=== PATIENT | male | born 1995 | race African-American/Black ===

== ENCOUNTER 2016-10-17 03:41 | Emergency (ER) | payer OTHER ==
[2016-10-17 03:58] VITALS: BP 141/85; PULSE 100; TEMP 98.1; BMI 29.3
[2016-10-17] MEDS ORDERED: ACYCLOVIR 400 MG TABLET PO ONE (05:27)
[2016-10-17] MEDS ORDERED: AZITHROMYCIN 250 MG TABLET (FP) PO ONE (05:28)
[2016-10-17] MEDS ORDERED: cefTRIAXone SODIUM 1 GM VIAL ONE (05:47)
[2016-10-17] MEDS ORDERED: ACYCLOVIR 200 MG CAPSULE ONE (05:47)
[2016-10-17] MEDS ORDERED: AZITHROMYCIN 1 GM PACKET ONE (05:47)
--- NOTE | 2016-10-17 05:55 | PDOC ---
History of Present Illness - General History Source: Patient Exam Limitations: No Limitations - History of Present Illness Initial Comments: 10/17/16 05:03 The patient is a 20 year old male with significant past medical history of asthma who presents to the ED with s/p just informed by the girl he is involved with has herpes. Patient reports he has not noted any lesions on him nor has he noted any active outbreaks on the girl he is currently with. After he was informed, he became concerned and decided to get checked out. The patient denies fever, chills, cough, SOB, chest pain, and palpitations. The patient denies abdominal pain, nausea, vomiting, and diarrhea. The patient denies dysuria, hematuria, urgency, and frequency. <Daina Trivedi - Last Filed: 10/17/16 05:03> - General History Source: Patient <NormJarad pichardo - Last Filed: 10/17/16 05:34> - General Chief Complaint: Pain Stated Complaint: ABD PAIN Time Seen by Provider: 10/17/16 04:24 Past History <Daina Trivedi - Last Filed: 10/17/16 05:03> - Past Medical History Asthma: Yes - Immunization History Immunization Up to Date: Yes - Psycho/Social/Smoking Cessation Hx Anxiety: No Suicidal Ideation: No Smoking Status: No Smoking History: Unknown if ever smoked Have you smoked in the past 12 months: Yes Number of Cigarettes Smoked Daily: 0 Cigars Per Day: 0 Hx Alcohol Use: No Drug/Substance Use Hx: No Substance Use Type: None <Jarad Caba - Last Filed: 10/17/16 05:34> - Past Medical History Allergies/Adverse Reactions: Allergies Allergy/AdvReac Type Severity Reaction Status Date / Time shellfish derived Allergy Verified 01/01/16 01:14 SHRIMP Allergy Severe Difficulty Uncoded 01/01/16 01:14 Breathing Home Medications: Ambulatory Orders Benzocaine/Menthol [Sore Throat Lozenge] 1 each MM Q4H PRN #20 lozenge 03/01/16 Naproxen [Naprosyn -] 500 mg PO BID PRN #20 tablet 03/01/16 Acyclovir [Zovirax -] 800 mg PO QID #30 tablet 10/17/16 Review of Systems - Review of Systems Able to Perform ROS?: Yes Comments:: 10/17/16 05:03 CONSTITUTIONAL: Absent: fever, no chills, no fatigue EYES: Absent: visual changes ENT: Absent: ear pain, no sore throat CARDIOVASCULAR: Absent: chest pain, no palpitations RESPIRATORY: Absent: cough, no SOB GI: Absent: abdominal pain, no nausea, no vomiting, no constipation, no diarrhea GENITOURINARY: Absent: dysuria, no frequency, no hematuria MUSKULOSKELETAL: Absent: back pain, no arthralgia, no myalgia SKIN: Absent: rash NEURO: Absent: headache <Daina Trivedi - Last Filed: 10/17/16 05:03> *Physical Exam - Vital Signs Last Vital Signs Temp Pulse Resp BP Pulse Ox 98.1 F 100 H 18 141/85 98 10/17/16 03:56 10/17/16 03:56 10/17/16 03:56 10/17/16 03:56 10/17/16 03:56 - Physical Exam Comments: 10/17/16 05:03 GENERAL: Well-appearing, well-nourished. No apparent distress. HEENT: Normocephalic, atraumatic. PERRL, EOM intact. CARDIOVASCULAR: Normal S1, S2. Regular rate and rhythm. PULMONARY: Clear to auscultation bilaterally. ABDOMEN: Soft, non-distended, non-tender. : Circumcised. Both testistcles are down. No masses. No lesions in the groin region. EXTREMITIES: Normal ROM in all four extremities. No gross deformities. SKIN: Warm, dry. No rash NEUROLOGICAL: No focal neurological deficits. <Daina Trivedi - Last Filed: 10/17/16 05:03> - Vital Signs Last Vital Signs Temp Pulse Resp BP Pulse Ox 98.1 F 100 H 18 141/85 98 10/17/16 03:56 10/17/16 03:56 10/17/16 03:56 10/17/16 03:56 10/17/16 03:56 <Jarad Caba - Last Filed: 10/17/16 05:34> Medical Decision Making - Medical Decision Making 10/17/16 05:31 Dr. Caba: The scribe's documentation has been prepared under my direction and personally reviewed by me in its entirery. I confirm that the note above accurately reflects all work, treatment, procedures, and medical decision making performed by me. Patient made aware that cultures taken this evening will not come back tonight. Pt will be treated prophylactically. Rx Acyclovir <Jarad Caba - Last Filed: 10/17/16 05:34> *DC/Admit/Observation/Transfer - Attestations Scribe Attestion: 10/17/16 05:04 Documentation prepared by Daina Trivedi, acting as medical associate for Jarad Caba MD. <Daina Trivedi - Last Filed: 10/17/16 05:03> - Discharge Dispostion Admit: No <Jarad Caba - Last Filed: 10/17/16 05:34> Diagnosis at time of Disposition: Possible exposure to STD - Discharge Dispostion Disposition: HOME Condition at time of disposition: Stable - Prescriptions Prescriptions: Acyclovir [Zovirax -] 800 mg PO QID #30 tablet - Referrals Referrals: Clinton Miller MD [Primary Care Provider] - - Patient Instructions Printed Discharge Instructions: Facts About Sexually Transmitted Infections
== END 2016-10-17 05:58 | disposition home or self-care (01) ==
LOC: JER 03:41
DX: Z20.2 Contact with and (suspected) exposure to infections with a predominantly sexual mode of transmission (principal)
CPT/HCPCS: 36415; 87491; 87591; 99281-25

== ENCOUNTER 2017-02-19 00:27 | Emergency (ER) | payer OTHER ==
[2017-02-19 01:02] VITALS: BP 131/94; PULSE 96; TEMP 99.7; BMI 28.8
[2017-02-19] MEDS ORDERED: ALBUTEROL SO4 0.083% IH SOL 2.5 MG/3 ML VIAL.NEB. NEB ONE (01:05)
[2017-02-19] MEDS ORDERED: predniSONE 20 MG TABLET (UD) PO ONE (01:05)
--- NOTE | 2017-02-19 01:05 | PDOC ---
History of Present Illness - General History Source: Patient <Jarad Caba - Last Filed: 02/19/17 01:08> - General History Source: Patient Exam Limitations: No Limitations - History of Present Illness Initial Comments: 02/19/17 01:14 The patient is a 21 year old male with significant past medical history of asthma who presents to the ED for SOB and dry cough. Patient reports he periodically gets ill, nasal congestion, and wheezing. States a few days ago he had tactile fever that resolved on its own. Denies cigarette smoking. Denies any sick contacts or recent travels. The patient denies fever, chills, diaphoresis, chest pain, and palpitations. The patient denies abdominal pain, nausea, vomiting, and diarrhea. PCP: Dr. Clinton Miller <Daina Trivedi - Last Filed: 02/19/17 01:15> - General Chief Complaint: Respiratory Stated Complaint: DIFFICULTY BREATHING,COUGH Time Seen by Provider: 02/19/17 01:01 Past History - Past Medical History Asthma: Yes - Immunization History Immunization Up to Date: Yes - Psycho/Social/Smoking Cessation Hx Anxiety: No Suicidal Ideation: No Smoking Status: No Smoking History: Never smoked Have you smoked in the past 12 months: No Number of Cigarettes Smoked Daily: 0 Cigars Per Day: 0 Information on smoking cessation initiated: No Hx Alcohol Use: No Drug/Substance Use Hx: No Substance Use Type: None <Jarad Caba - Last Filed: 02/19/17 01:08> <Daina Trivedi - Last Filed: 02/19/17 01:15> - Past Medical History Allergies/Adverse Reactions: Allergies Allergy/AdvReac Type Severity Reaction Status Date / Time shellfish derived Allergy Verified 02/19/17 00:52 ibuprofen [From Motrin] AdvReac Verified 02/19/17 00:52 SHRIMP Allergy Severe Difficulty Uncoded 02/19/17 00:52 Breathing Home Medications: Ambulatory Orders Albuterol Sulfate Inhaler - [Ventolin HFA Inhaler -] 2 inh IH Q6H #1 inh Azithromycin [Zithromax -] 250 mg PO UTDICT #6 tab 02/19/17 Prednisone [Deltasone -] 40 mg PO DAILY #14 tablet 02/19/17 Review of Systems - Review of Systems Able to Perform ROS?: Yes Comments:: 02/19/17 01:14 CONSTITUTIONAL: Absent: fever, no chills, no fatigue EYES: Absent: visual changes ENT: +nasal congestion Absent: ear pain, no sore throat CARDIOVASCULAR: Absent: chest pain, no palpitations RESPIRATORY: +cough, SOB, wheezing GI: Absent: abdominal pain, no nausea, no vomiting, no constipation, no diarrhea GENITOURINARY: Absent: dysuria, no frequency, no hematuria MUSCULOSKELETAL: Absent: back pain, no arthralgia, no myalgia SKIN: Absent: rash NEURO: Absent: headache <Daina Trivedi - Last Filed: 02/19/17 01:15> *Physical Exam - Vital Signs Last Vital Signs Temp Pulse Resp BP Pulse Ox 99.7 F H 96 H 20 131/94 96 02/19/17 00:50 02/19/17 00:50 02/19/17 00:50 02/19/17 00:50 02/19/17 00:50 <Jarad Caba - Last Filed: 02/19/17 01:08> - Vital Signs Last Vital Signs Temp Pulse Resp BP Pulse Ox 99.7 F H 96 H 20 131/94 96 02/19/17 00:50 02/19/17 00:50 02/19/17 00:50 02/19/17 00:50 02/19/17 00:50 - Physical Exam Comments: 02/19/17 01:14 GENERAL: Well-appearing, well-nourished. No apparent distress. HEENT: Normocephalic, atraumatic. PERRL, EOM intact. Moderate nasal congestion. CARDIOVASCULAR: Normal S1, S2. Regular rate and rhythm. PULMONARY: Bilateral course wheezing. ABDOMEN: Soft, non-distended, non-tender. EXTREMITIES: Normal ROM in all four extremities. No gross deformities. SKIN: Warm, dry. No rash NEUROLOGICAL: No focal neurological deficits. <Daina Trivedi - Last Filed: 02/19/17 01:15> Medical Decision Making - Medical Decision Making 02/19/17 01:09 Dr. Caba: The scribe's documentation has been prepared under my direction and personally reviewed by me in its entirery. I confirm that the note above accurately reflects all work, treatment, procedures, and medical decision making performed by me. <Jarad Caba - Last Filed: 02/19/17 01:08> *DC/Admit/Observation/Transfer - Discharge Dispostion Admit: No <Jarad Caba - Last Filed: 02/19/17 01:08> - Attestations Scribe Attestion: 02/19/17 01:15 Documentation prepared by Daian Trivedi, acting as medical reception for Jarad Caba MD/DO. <Daina Trivedi - Last Filed: 02/19/17 01:15> Diagnosis at time of Disposition: Asthmatic bronchitis with exacerbation Qualifiers: Asthma severity: mild intermittent Qualified Code(s): J45.21 - Mild intermittent asthma with (acute) exacerbation Upper respiratory infection Qualifiers: URI type: unspecified URI Qualified Code(s): J06.9 - Acute upper respiratory infection, unspecified - Discharge Dispostion Disposition: HOME Condition at time of disposition: Stable - Prescriptions Prescriptions: Prednisone [Deltasone -] 40 mg PO DAILY #14 tablet Albuterol Sulfate Inhaler - [Ventolin HFA Inhaler -] 2 inh IH Q6H #1 inh Azithromycin [Zithromax -] 250 mg PO UTDICT #6 tab - Referrals Referrals: Clinton Miller MD [Primary Care Provider] - Jonnathan Kumar MD [Staff Physician] - - Patient Instructions Printed Discharge Instructions: DI for Acute Bronchitis
[2017-02-19] MEDS ORDERED: AZITHROMYCIN 250 MG TABLET (FP) PO STA (01:06)
[2017-02-19] MEDS ORDERED: predniSONE 20 MG TABLET (UD) ONE (01:20)
[2017-02-19] MEDS ORDERED: AZITHROMYCIN 250 MG TABLET (FP) ONE (01:21)
== END 2017-02-19 01:38 | disposition home or self-care (01) ==
LOC: JER 00:27
DX: J45.21 Mild intermittent asthma with (acute) exacerbation (principal); J06.9 Acute upper respiratory infection, unspecified; J45.909 Unspecified asthma, uncomplicated
CPT/HCPCS: 99282-25

== ENCOUNTER 2017-06-03 22:50 | Emergency (ER) | payer OTHER ==
[2017-06-03 23:00] VITALS: BP 123/64; PULSE 80; TEMP 98.6; BMI 29.3
--- NOTE | 2017-06-03 23:30 | PDOC ---
History of Present Illness - General History Source: Patient Exam Limitations: No Limitations - History of Present Illness Initial Comments: 06/03/17 23:34 The patient is a 21 year old male with significant past medical history of asthma who presents to the ED for 2 days of sore throat. Patient complains of slight dysphagia, but not drooling. The patient denies fever, chills, cough, SOB, and chest pain. The patient denies abdominal pain, nausea, vomiting, and diarrhea. Allergies: ibuprofen Social History: Denies tobacco use. No alcohol or drug use reported. Past Surgical History: None reported PCP: Dr. Clinton Miller <Daina Trivedi - Last Filed: 06/03/17 23:34> - General History Source: Patient <MargretBrandyJarad - Last Filed: 06/03/17 23:38> - General Chief Complaint: Sore Throat Stated Complaint: SORE THROAT Time Seen by Provider: 06/03/17 23:30 Past History <Daina Trivedi - Last Filed: 06/03/17 23:34> - Past Medical History Asthma: Yes - Immunization History Immunization Up to Date: Yes - Psycho/Social/Smoking Cessation Hx Anxiety: No Suicidal Ideation: No Smoking Status: No Smoking History: Never smoked Have you smoked in the past 12 months: No Number of Cigarettes Smoked Daily: 0 Cigars Per Day: 0 Hx Alcohol Use: No Drug/Substance Use Hx: No Substance Use Type: None <Jarad Caba - Last Filed: 06/03/17 23:38> - Past Medical History Allergies/Adverse Reactions: Allergies Allergy/AdvReac Type Severity Reaction Status Date / Time shellfish derived Allergy Verified 06/03/17 23:00 ibuprofen [From Motrin] AdvReac Verified 06/03/17 23:00 SHRIMP Allergy Severe Difficulty Uncoded 06/03/17 23:00 Breathing Home Medications: Ambulatory Orders Albuterol Sulfate Inhaler - [Ventolin HFA Inhaler -] 2 inh IH Q6H #1 inh Azithromycin [Zithromax -] 250 mg PO UTDICT #6 tab 02/19/17 Prednisone [Deltasone -] 40 mg PO DAILY #14 tablet 02/19/17 Penicillin V Potassium [Pen Vee K -] 500 mg PO TID #30 tablet 06/03/17 Review of Systems - Review of Systems Able to Perform ROS?: Yes Comments:: 06/03/17 23:34 CONSTITUTIONAL: Absent: fever, no chills, no fatigue EYES: Absent: visual changes ENT: +sore throat, slight dysphagia Absent: ear pain CARDIOVASCULAR: Absent: chest pain, no palpitations RESPIRATORY: Absent: cough, no SOB GI: Absent: abdominal pain, no nausea, no vomiting, no constipation, no diarrhea GENITOURINARY: Absent: dysuria, no frequency, no hematuria MUSCULOSKELETAL: Absent: back pain, no arthralgia, no myalgia SKIN: Absent: rash NEURO: Absent: headache <Daina Trivedi - Last Filed: 06/03/17 23:34> *Physical Exam - Vital Signs Last Vital Signs Temp Pulse Resp BP Pulse Ox 98.6 F 80 18 123/64 99 06/03/17 22:57 06/03/17 22:57 06/03/17 22:57 06/03/17 22:57 06/03/17 22:57 - Physical Exam Comments: 06/03/17 23:34 GENERAL: Well-appearing, well-nourished. No apparent distress. HEENT: Normocephalic, atraumatic. PERRL, EOM intact. Large erythematous bilateral tonsil with diffuse exudates. CARDIOVASCULAR: Normal S1, S2. Regular rate and rhythm. PULMONARY: Clear to auscultation bilaterally. ABDOMEN: Soft, non-distended, non-tender. EXTREMITIES: Normal ROM in all four extremities. No gross deformities. SKIN: Warm, dry. No rash NEUROLOGICAL: No focal neurological deficits. <Daina Trivedi - Last Filed: 06/03/17 23:34> - Vital Signs Last Vital Signs Temp Pulse Resp BP Pulse Ox 98.6 F 80 18 123/64 99 06/03/17 22:57 06/03/17 22:57 06/03/17 22:57 06/03/17 22:57 06/03/17 22:57 <Jarad Caba - Last Filed: 06/03/17 23:38> Medical Decision Making - Medical Decision Making 06/03/17 23:33 Dr. Caba: The scribe's documentation has been prepared under my direction and personally reviewed by me in its entirery. I confirm that the note above accurately reflects all work, treatment, procedures, and medical decision making performed by me. <Jarad Caba - Last Filed: 06/03/17 23:38> *DC/Admit/Observation/Transfer - Attestations Scribe Attestion: 06/03/17 23:35 Documentation prepared by Daina Trivedi, acting as medical laboratory technologist for Jarad Caba DO. <Daina Trivedi - Last Filed: 06/03/17 23:34> - Discharge Dispostion Admit: No <Jarad Caba - Last Filed: 06/03/17 23:38> Diagnosis at time of Disposition: Pharyngitis Qualifiers: Pharyngitis/tonsillitis etiology: unspecified etiology Qualified Code(s): J02.9 - Acute pharyngitis, unspecified - Discharge Dispostion Disposition: HOME Condition at time of disposition: Stable - Prescriptions Prescriptions: Penicillin V Potassium [Pen Vee K -] 500 mg PO TID #30 tablet - Referrals Referrals: Clinton Miller MD [Primary Care Provider] - - Patient Instructions Printed Discharge Instructions: DI for Pharyngitis/Tonsillopharyngitis -- Adult Additional Instructions: drink plenty of fluids. Take medications as directed. Take Tylenol for pain and fever every 6 hours
[2017-06-03] MEDS ORDERED: PENICILLIN V POTASSIUM 500 MG TABLET PO ONE (23:31)
[2017-06-03] MEDS ORDERED: ACETAMINOPHEN 325 MG TABLET (FP) PO ONE (23:33)
[2017-06-04] MEDS ORDERED: ACETAMINOPHEN 325 MG TABLET (FP) ONE (00:29)
== END 2017-06-04 00:34 | disposition home or self-care (01) ==
LOC: JER 22:50
DX: J02.9 Acute pharyngitis, unspecified (principal); Z87.09 Personal history of other diseases of the respiratory system
CPT/HCPCS: 99281-25

== ENCOUNTER 2017-06-11 20:15 | Emergency (ER) | payer OTHER ==
[2017-06-11 20:30] VITALS: BP 142/89; PULSE 88; TEMP 98.6; BMI 29.7
[2017-06-11] MEDS ORDERED: AZITHROMYCIN 1 GM PACKET PO ONE (21:22)
--- NOTE | 2017-06-11 21:46 | PDOC ---
History of Present Illness - General Chief Complaint: Revisit, Lab Variance Stated Complaint: POSSIBLE STD Time Seen by Provider: 06/11/17 20:37 History Source: Patient Exam Limitations: No Limitations - History of Present Illness Initial Comments: 06/11/17 21:23 Patient here with partner received let her from [facility] notifying her May 21, and again May 28 of positive chlamydia culture. Patient denies swelling, pain, burning with urination or discharge. Has been treated for gonorrhea and Chlamydia 2 in the past from different partners. Last episode was one year ago with different partner. Timing/Duration: unsure Associated Symptoms: reports: denies symptoms Past History - Travel Traveled outside of the country in the last 30 days: No Close contact w/someone who was outside of country & ill: No - Past Medical History Allergies/Adverse Reactions: Allergies Allergy/AdvReac Type Severity Reaction Status Date / Time shellfish derived Allergy Verified 06/03/17 23:00 ibuprofen [From Motrin] AdvReac Verified 06/03/17 23:00 SHRIMP Allergy Severe Difficulty Uncoded 06/03/17 23:00 Breathing Home Medications: Ambulatory Orders NK [No Known Home Medication] 06/11/17 Asthma: Yes - Immunization History Immunization Up to Date: Yes - Psycho/Social/Smoking Cessation Hx Anxiety: No Suicidal Ideation: No Smoking Status: No Smoking History: Never smoked Have you smoked in the past 12 months: No Number of Cigarettes Smoked Daily: 0 Cigars Per Day: 0 Information on smoking cessation initiated: No Hx Alcohol Use: No Drug/Substance Use Hx: No Substance Use Type: None Review of Systems - Review of Systems Able to Perform ROS?: Yes Is the patient limited Sinhala proficient: Yes Constitutional: Yes: See HPI. No: Symptoms Reported, Fever HEENTM: No: Symptoms Reported Respiratory: No: Symptoms reported ABD/GI: Yes: See HPI. No: Symptoms Reported : Yes: Symptoms Reported, See HPI. No: Burning, Dysuria, Discharge, Flank Pain, Testicular Mass, Testicular Swelling All Other Systems: Reviewed and Negative *Physical Exam - Vital Signs Last Vital Signs Temp Pulse Resp BP Pulse Ox 98.6 F 88 17 142/89 97 06/11/17 20:28 06/11/17 20:28 06/11/17 20:28 06/11/17 20:28 06/11/17 20:28 - Physical Exam General Appearance: Yes: Nourished, Appropriately Dressed HEENT: positive: BETTE, Normal ENT Inspection, TMs Normal, Pharynx Normal Neck: positive: Supple. negative: Tender Respiratory/Chest: positive: Lungs Clear Musculoskeletal: positive: Normal Inspection Integumentary: positive: Normal Color, Pale Neurologic: positive: ruffling hemmer automatic II-XII NML intact, Fully Oriented, Alert, Normal Mood/ Affect, Normal Response, Motor Strength 02/07 Medical Decision Making - Medical Decision Making 06/11/17 22:07 STD exposure, girlfriend with positive chlamydia culture. We will treat for gonorrhea and chlamydia with Rocephin and Zithromax, no reaction after 30 minutes *DC/Admit/Observation/Transfer Diagnosis at time of Disposition: Possible exposure to STD - Discharge Dispostion Disposition: HOME Condition at time of disposition: Stable Admit: No - Patient Instructions Printed Discharge Instructions: DI for Chlamydia Additional Instructions: You been treated today with azithromycin 1 g by mouth for treatment of chlamydia You have been treated with Rocephin 250 mg injection for treatment of gonorrhea Always use condoms with the partners Followup with PMD in one week for reevaluation and retesting. Encouraged HIV testing at that visit.
[2017-06-11] MEDS ORDERED: AZITHROMYCIN 1 GM PACKET ONE (21:49)
== END 2017-06-11 22:07 | disposition home or self-care (01) ==
LOC: JERFT 20:15
DX: Z11.3 Encounter for screening for infections with a predominantly sexual mode of transmission (principal)
CPT/HCPCS: 36415; 87491; 87591; 99281-25

== ENCOUNTER 2017-07-02 23:32 | Emergency (ER) | payer OTHER ==
[2017-07-02 23:39] VITALS: BP 143/88; PULSE 99; TEMP 98.4; BMI 30.2
--- NOTE | 2017-07-03 01:15 | PDOC ---
*Physical Exam - Vital Signs Last Vital Signs Temp Pulse Resp BP Pulse Ox 98.4 F 99 H 18 143/88 99 07/02/17 23:36 07/02/17 23:36 07/02/17 23:36 07/02/17 23:36 07/02/17 23:36 Medical Decision Making - Medical Decision Making 07/03/17 01:16 agree with care from LUIS Camacho *DC/Admit/Observation/Transfer Diagnosis at time of Disposition: STD (male) - Referrals Referrals: Shantel Stubbs MD [Staff Physician] - - Patient Instructions Printed Discharge Instructions: How to Detect and Treat STDs Additional Instructions: Abstinence for the next 2 weeks You have been advised that you will buildup and immunity to the antibiotics being treated for chlamydia and gonorrhea if this occurs often. This has been your fourth treatment for this year. Return back to the emergency department for any concerns Be sure to follow-up with infectious disease/physician name is noted on your discharge
--- NOTE | 2017-07-03 01:31 | PDOC ---
History of Present Illness - General Chief Complaint: Urinary Problem Stated Complaint: EVALUATION Time Seen by Provider: 07/03/17 00:38 History Source: Patient Exam Limitations: No Limitations - History of Present Illness Initial Comments: 07/03/17 01:25 21-year-old male with no medical history presents to the emergency department requesting for Chlamydia/gonorrhea treatment. Patient states on June 11, he was in the emergency department with his girlfriend after she was tested positive for chlamydia. Patient was given ceftriaxone 250 mg and Zithromax 1 g. Patient was advised to stay abstinence from one week but had oral intercourse 3 days later and unprotective sex 4 days later. Patient feels that he needs to get treated again. Patient adamantly refuses all STD testing at this time. Patient states his new partner was also tested for chlamydia. Patient denies any fever, chills, nausea/vomiting, abdominal pains, urinary symptoms: Burning upon urination, drainage/hesitancy, hematuria, frequency, urgency. Past History - Past Medical History Allergies/Adverse Reactions: Allergies Allergy/AdvReac Type Severity Reaction Status Date / Time shellfish derived Allergy Verified 07/02/17 23:39 ibuprofen [From Motrin] AdvReac Verified 07/02/17 23:39 SHRIMP Allergy Severe Difficulty Uncoded 07/02/17 23:39 Breathing Home Medications: Ambulatory Orders NK [No Known Home Medication] 06/11/17 Asthma: Yes - Immunization History Immunization Up to Date: Yes - Suicide/Smoking/Psychosocial Hx Smoking Status: No Smoking History: Never smoked Have you smoked in the past 12 months: No Number of Cigarettes Smoked Daily: 0 Cigars Per Day: 0 Hx Alcohol Use: No Drug/Substance Use Hx: No Substance Use Type: None Review of Systems - Review of Systems Able to Perform ROS?: Yes Comments:: 07/03/17 01:28 CONSTITUTIONAL: Absent: fever, chills, diaphoresis, generalized weakness, malaise, loss of appetite CARDIOVASCULAR: Absent: chest pain, loss of consciousness, palpitations, irregular heart rate, peripheral edema RESPIRATORY: Absent: cough, shortness of breath, dyspnea with exertion, orthopnea, wheezing, stridor, hemoptysis GASTROINTESTINAL: Absent: abdominal pain, abdominal distension, nausea, vomiting, diarrhea, constipation, melena, hematochezia GENITOURINARY: Absent: dysuria, frequency, urgency, hesitancy, hematuria, flank pain, genital pain, penile drainage, burning upon urination, testicular swelling/discomfort Is the patient limited Latvian proficient: No *Physical Exam - Vital Signs Last Vital Signs Temp Pulse Resp BP Pulse Ox 98.4 F 99 H 18 143/88 99 07/02/17 23:36 07/02/17 23:36 07/02/17 23:36 07/02/17 23:36 07/02/17 23:36 - Physical Exam Comments: 07/03/17 01:28 GENERAL: Well developed, well nourished. Awake and alert. No acute distress. HEENT: Normocephalic, atraumatic. PERRLA, EOMI. No conjunctival pallor. Sclera are non- icteric. Moist mucous membranes. Oropharynx is clear. NECK: Supple. Full ROM. No JVD. Carotid pulses 2+ and symmetric, without bruits. No thyromegaly. No lymphadenopathy. CARDIOVASCULAR: Regular rate and rhythm. No murmurs, rubs, or gallops. Distal pulses are 2+ and symmetric. PULMONARY: No evidence of respiratory distress. Lungs clear to auscultation bilaterally. No wheezing, rales or rhonchi. ABDOMINAL: Soft. Non-tender. Non-distended. No rebound or guarding. No organomegaly. Normoactive bowel sounds. MUSCULOSKELETAL Normal range of motion at all joints. No bony deformities or tenderness. No CVA tenderness. EXTREMITIES: No cyanosis. No clubbing. No edema. No calf tenderness. SKIN: Warm and dry. Normal capillary refill. No rashes. No jaundice. NEUROLOGICAL: Alert, awake, appropriate. Cranial nerves 2-12 intact. No deficits to light touch and temperature in face, upper extremities and lower extremities. No motor deficits in the in face, upper extremities and lower extremities. Normoreflexic in the upper and lower extremities. Normal speech. Toes are down- going bilaterally. Gait is normal without ataxia. PSYCHIATRIC: Cooperative. Good eye contact. Appropriate mood and affect. *DC/Admit/Observation/Transfer Diagnosis at time of Disposition: STD (male) - Discharge Dispostion Disposition: HOME Condition at time of disposition: Stable Admit: No - Referrals Referrals: Shantel Stubbs MD [Staff Physician] - - Patient Instructions Printed Discharge Instructions: How to Detect and Treat STDs Additional Instructions: Abstinence for the next 2 weeks You have been advised that you will buildup and immunity to the antibiotics being treated for chlamydia and gonorrhea if this occurs often. This has been your fourth treatment for this year. Return back to the emergency department for any concerns Be sure to follow-up with infectious disease/physician name is noted on your discharge
[2017-07-03] MEDS ORDERED: AZITHROMYCIN 1 GM PACKET PO ONE (01:33)
[2017-07-03] MEDS ORDERED: AZITHROMYCIN 250 MG TABLET ONE (01:33)
[2017-07-03] MEDS ORDERED: cefTRIAXone SODIUM 1 GM VIAL ONE (01:33)
== END 2017-07-03 01:46 | disposition home or self-care (01) ==
LOC: JER 23:32
DX: Z20.2 Contact with and (suspected) exposure to infections with a predominantly sexual mode of transmission (principal)
CPT/HCPCS: 99281-25

== ENCOUNTER 2017-12-04 23:56 | Emergency (ER) | payer OTHER ==
[2017-12-05 00:23] VITALS: BP 130/75; PULSE 75; TEMP 98.7; BMI 29.0
[2017-12-05] MEDS ORDERED: traMADol HCL 50 MG TABLET PO ONE (02:35)
[2017-12-05] MEDS ORDERED: CYCLOBENZAPRINE HCL 10 MG TABLET (FP) PO ONE (02:36)
[2017-12-05] MEDS ORDERED: CYCLOBENZAPRINE HCL 10 MG TABLET (FP) ONE (03:13)
[2017-12-05] MEDS ORDERED: traMADol HCL 50 MG TABLET ONE (03:13)
--- NOTE | 2017-12-05 03:39 | PDOC ---
History of Present Illness - General Chief Complaint: Back Pain Stated Complaint: BACK PAIN/COLD SYMPTOMS Time Seen by Provider: 12/05/17 02:08 History Source: Patient Exam Limitations: No Limitations - History of Present Illness Initial Comments: 12/05/17 03:32 Patient is a 21 year old male with no past medical history here with complaints of upper and lower back pain for about 5 months. States that he acquired a new job which consisted of a lot of heavy lifting, and has had pain since starting the job. States his pain has been progressively worsening and is now 8.5/10, sharp achy, worse with bending. He is here for something for his pain and a note to be off from work. No bowel or bladder incontinence, no numbness tingling in the legs PSOCHX: (-) cig, occ etoh, neg drug ALL: Motrin GENERAL/CONSTITUTIONAL: [No fever or chills. No weakness. No weight change.] HEAD, EYES, EARS, NOSE AND THROAT: [No change in vision. No ear pain or discharge. No sore throat.] CARDIOVASCULAR: [No chest pain or shortness of breath.] RESPIRATORY: [No cough, wheezing, or hemoptysis.] GASTROINTESTINAL: [No nausea, vomiting, diarrhea or constipation. No rectal bleeding.] GENITOURINARY: [No dysuria, frequency, or change in urination.] MUSCULOSKELETAL: [No joint or muscle swelling or pain. No neck (+) back pain.] SKIN AND BREASTS: [No rash or easy bruising.] NEUROLOGIC: [No headache, vertigo, loss of consciousness, or loss of sensation.] PSYCHIATRIC: [No depression or anxiety.] ENDOCRINE: [No increased thirst. No abnormal weight change.] HEMATOLOGIC/LYMPHATIC: [No anemia, easy bleeding, or history of blood clots.] ALLERGIC/IMMUNOLOGIC: [No hives or skin allergy. No latex allergy.] GENERAL: [The patient is awake, alert, and fully oriented, in no acute distress. ] HEAD: [Normal with no signs of trauma.] EYES: [Pupils equal, round and reactive to light, extraocular movements intact, sclera anicteric, conjunctiva clear.] ENT: [Ears normal, nares patent, oropharynx clear without exudates. Moist mucous membranes.] NECK: [Normal range of motion, supple without lymphadenopathy, JVD, or masses.] LUNGS: [Breath sounds equal, clear to auscultation bilaterally. No wheezes, and no crackles.] HEART: [Regular rate and rhythm, normal S1 and S2 without murmur, rub.] ABDOMEN: [Soft, nontender, normoactive bowel sounds. No guarding, no rebound. No masses.] BACK: tenderness to palp over thoracic and lumbar paraspinal muscles, decreased range of motion to flexion- bending over to touch toes due to pain. EXTREMITIES: [Normal range of motion, no edema. No clubbing or cyanosis. No cords, erythema, or tenderness.] NEUROLOGICAL: [Cranial nerves II through XII grossly intact. Normal speech, normal gait.] PSYCH: [Normal mood, normal affect.] SKIN: [Warm, Dry, normal turgor, no rashes or lesions noted.] Past History - Past Medical History Allergies/Adverse Reactions: Allergies Allergy/AdvReac Type Severity Reaction Status Date / Time shellfish derived Allergy Verified 12/05/17 00:17 ibuprofen [From Motrin] AdvReac Verified 12/05/17 00:17 SHRIMP Allergy Severe Difficulty Uncoded 12/05/17 00:17 Breathing Home Medications: Ambulatory Orders Cyclobenzaprine HCl 10 mg PO TID #30 tablet 12/05/17 Tramadol HCl [Ultram] 50 mg PO TID #20 tablet MDD 6 12/05/17 Asthma: Yes - Immunization History Immunization Up to Date: Yes - Suicide/Smoking/Psychosocial Hx Smoking Status: No Smoking History: Never smoked Have you smoked in the past 12 months: No Number of Cigarettes Smoked Daily: 0 Cigars Per Day: 0 Information on smoking cessation initiated: No Hx Alcohol Use: No Drug/Substance Use Hx: No Substance Use Type: None *Physical Exam - Vital Signs Last Vital Signs Temp Pulse Resp BP Pulse Ox 98.7 F 75 20 130/75 99 12/05/17 00:22 12/05/17 00:22 12/05/17 00:22 12/05/17 00:22 12/05/17 00:22 ED Treatment Course - RADIOLOGY Radiology Studies Ordered: Category Date Time Status SPINE-LUMBAR ONLY [RAD] Stat Radiology 12/05/17 02:34 Taken SPINE-THORACIC [RAD] Stat Radiology 12/05/17 02:34 Taken - Medications Given in the ED: ED Medications Discontinued Medications Generic Name Dose Route Start Last Admin Trade Name Freq PRN Reason Stop Dose Admin Cyclobenzaprine HCl 10 mg 12/05/17 02:36 12/05/17 03:17 Flexeril - PO 12/05/17 02:37 10 mg ONCE ONE Administration Tramadol HCl 50 mg 12/05/17 02:35 12/05/17 03:17 Ultram - PO 12/05/17 02:36 50 mg ONCE ONE Administration Medical Decision Making - Medical Decision Making 12/05/17 03:48 Patient is a 21 year old male with no past medical history here with complaints of upper and lower back pain for about 5 months from lifting heavy boxes at work , consistent with muscle strain. Flexeril in the emergency room Thoracic and lumbar spine x-rays obtained. Slight lordotic curvature in the thoracic spine. No acute fracture. I discussed the physical exam findings, ancillary test results and final diagnoses with the patient. I answered all of the patient's questions. The patient was satisfied with the care received and felt comfortable with the discharge plan and treatment plan. The Patient agrees to follow up with the primary care physician within 24-72 hours. *DC/Admit/Observation/Transfer Diagnosis at time of Disposition: Back strain Qualifiers: Encounter type: initial encounter Qualified Code(s): S39.012A - Strain of muscle, fascia and tendon of lower back, initial encounter - Discharge Dispostion Disposition: HOME Condition at time of disposition: Stable - Prescriptions Prescriptions: Cyclobenzaprine HCl 10 mg PO TID #30 tablet Tramadol HCl [Ultram] 50 mg PO TID #20 tablet MDD 6 - Referrals Referrals: Carlos Santoyo MD [Staff Physician] - - Patient Instructions Printed Discharge Instructions: DI for Back Strain or Sprain Additional Instructions: Follow up with ortho in 1-2 days, wear back support, take motrin of tylenol for the pain. For bowel and bladder incontinence return to the ED. - Post Discharge Activity Forms/Work/School Notes: Back to Work
== END 2017-12-05 03:54 | disposition home or self-care (01) ==
LOC: JER 23:56
DX: S39.012A Strain of muscle, fascia and tendon of lower back, initial encounter (principal); S29.012A Strain of muscle and tendon of back wall of thorax, initial encounter; X50.0XXA Overexertion from strenuous movement or load, initial encounter; Y93.89 Activity, other specified; Y92.512 Supermarket, store or market as the place of occurrence of the external cause; Y99.0 Civilian activity done for income or pay
CPT/HCPCS: 72070-TC-FY; 72100-TC-FY; 99281-25

== ENCOUNTER 2018-07-15 14:29 | Emergency (ER) | payer OTHER ==
[2018-07-15 14:35] VITALS: BP 122/72; PULSE 90; TEMP 98.4; BMI 27.8
--- NOTE | 2018-07-15 14:38 | PDOC ---
Rapid Medical Evaluation Chief Complaint: Cold Symptoms Time Seen by Provider: 07/15/18 14:33 Medical Evaluation: Allergies Allergy/AdvReac Type Severity Reaction Status Date / Time shellfish derived Allergy Verified 12/05/17 00:17 ibuprofen [From Motrin] AdvReac Verified 12/05/17 00:17 SHRIMP Allergy Severe Difficulty Uncoded 12/05/17 00:17 Breathing 07/15/18 14:33 The patient presents to the ED with: uri s/s x 1 week, o feverr, no difficulty breathing, no hx asthma, no travel The patient on brief exam: vss, lcta, active herpes x 2 days to shaft of penis, denies hx of std/ herpes The patient ordered for: gc/ chlam testing, rpr, HIV The patient to proceed to the ED Discharge Disposition - Diagnosis Upper respiratory infection - Referrals - Patient Instructions - Post Discharge Activity
[2018-07-15] MEDS ORDERED: AZITHROMYCIN 250 MG TABLET PO ONE (15:35)
[2018-07-15] MEDS ORDERED: AZITHROMYCIN 500 MG TABLET ONE (15:40)
--- NOTE | 2018-07-15 15:41 | PDOC ---
History of Present Illness - General Chief Complaint: Cold Symptoms Stated Complaint: COLD SYMPTOMS Time Seen by Provider: 07/15/18 14:33 - History of Present Illness Initial Comments: 22-year-old male with cold symptoms for 5 days, and exposure to herpes he would like STD testing and he would like to be treated for herpes as well as other STDs. He has declined HIV testing because he does not want to wait for results. Symptoms include new rash on the penis, cold-like symptoms stuffy nose no fever and productive cough of greenish sputum 07/15/18 15:36 Past History - Past Medical History Allergies/Adverse Reactions: Allergies Allergy/AdvReac Type Severity Reaction Status Date / Time shellfish derived Allergy Verified 07/15/18 14:35 ibuprofen [From Motrin] AdvReac Verified 07/15/18 14:35 SHRIMP Allergy Severe Difficulty Uncoded 07/15/18 14:35 Breathing Home Medications: Ambulatory Orders Acyclovir [Zovirax -] 400 mg PO TID #21 tablet 07/15/18 Asthma: Yes COPD: No - Immunization History Immunization Up to Date: Yes - Suicide/Smoking/Psychosocial Hx Smoking Status: No Smoking History: Never smoked Have you smoked in the past 12 months: No Number of Cigarettes Smoked Daily: 0 Cigars Per Day: 0 Information on smoking cessation initiated: No Hx Alcohol Use: No Drug/Substance Use Hx: No Substance Use Type: None Review of Systems - Review of Systems Respiratory: Yes: Cough : Yes: See HPI, Lesions All Other Systems: Reviewed and Negative *Physical Exam - Vital Signs Last Vital Signs Temp Pulse Resp BP Pulse Ox 98.4 F 90 16 122/72 100 07/15/18 14:32 07/15/18 14:32 07/15/18 14:32 07/15/18 14:32 07/15/18 14:32 - Physical Exam Comments: HEAD: NC/AT EYES: Conjuntiva clear Ears: Canals and TM's normal NOSE: Turbinates injected with rhinorrhea which is clear THROAT: Moist mucous membrances, oral pharanx clear, uvula midline NECK: Supple without adenopathy CARDIAC: S1 S2 LUNGS: CTA Full and Equal breath sounds ABDOMEN: Soft NT ND MS: Full ROM in all joints without edema NEUROLOGIC: No gross sensory or motor deficits, NVID SKIN: Normal color and temperature no lesions or rashes There are multiple vesicular lesions on the penis which are closed 07/15/18 15:38 Medical Decision Making - Medical Decision Making The patient will be treated with GC chlamydia with Zithromax and Rocephin and herpes with acyclovir 07/15/18 15:38 *DC/Admit/Observation/Transfer Diagnosis at time of Disposition: Upper respiratory infection, STD (male), Herpes genitalia - Discharge Dispostion Disposition: HOME Condition at time of disposition: Stable Decision to Admit order: No - Prescriptions Prescriptions: Acyclovir [Zovirax -] 400 mg PO TID #21 tablet - Referrals Referrals: Oskar Villatoro [Primary Care Provider] - - Patient Instructions Printed Discharge Instructions: DI for Viral Upper Respiratory Infection -- Adult, Facts About Sexually Transmitted Infections Additional Instructions: Is follow-up with her primary care physician in one to 2 days. He would treated in the emergency room today for gonorrhea and chlamydia with a injection of an antibiotic as well as oral antibiotics. A prescription for acyclovir was sent here pharmacy for treatment of herpes. Please take the medication as directed and again return to the emergency room should symptoms worsen ago on resolved. - Post Discharge Activity
== END 2018-07-15 16:00 | disposition home or self-care (01) ==
LOC: JERFT 14:29
DX: J06.9 Acute upper respiratory infection, unspecified (principal); A64 Unspecified sexually transmitted disease; A60.00 Herpesviral infection of urogenital system, unspecified; J45.909 Unspecified asthma, uncomplicated
CPT/HCPCS: 36415; 86593; 87491; 87591; 99281-25

== ENCOUNTER 2018-10-02 10:14 | Emergency (ER) | payer OTHER ==
[2018-10-02 10:24] VITALS: BP 122/80; PULSE 78; TEMP 98.1; BMI 27.8
--- NOTE | 2018-10-02 10:35 | PDOC ---
History of Present Illness - General Chief Complaint: Pain Stated Complaint: ABD PAIN Time Seen by Provider: 10/02/18 10:35 History Source: Patient Exam Limitations: No Limitations - History of Present Illness Travel History: No Initial Comments: 10/02/18 11:34 Best Contact: PCP:Denies Pmhx: 07/2018:Herpes Pshx:Denies Allergies: Ibuprofen/rash FH:0 Social Hx: Cigarettes/ denies Alcohol/ social Drugs/"I don't want to say" 22-year-old male presents to the emergency department requesting for antibiotics for his genital herpes which she noticed early this morning. Patient has been here in the emergency department being treated for STD in the past and currently denies any pain upon urination, fever, chills, nausea/ vomiting, chest pain, shortness of breath, abdominal discomfort, flank pains, urinary frequency/urgency/hesitancy or hematuria. Patient states he has not been sexually active for the past 5 weeks. Prior to that, he sat one partner/ female and did not use condoms. Patient states he went to [facility] last week/had STD tests which was negative as per the patient. Patient refuses to submit any STD tests in the emergency department today but states he noticed a herpetic lesion to his testicle and wishes to be treated. Past History - Past Medical History Allergies/Adverse Reactions: Allergies Allergy/AdvReac Type Severity Reaction Status Date / Time shellfish derived Allergy Verified 10/02/18 10:18 ibuprofen [From Motrin] AdvReac Verified 10/02/18 10:18 SHRIMP Allergy Severe Difficulty Uncoded 07/15/18 14:35 Breathing Home Medications: Ambulatory Orders Acyclovir [Zovirax -] 400 mg PO TID #60 capsule 10/02/18 Asthma: Yes COPD: No - Immunization History Immunization Up to Date: Yes - Suicide/Smoking/Psychosocial Hx Smoking Status: No Smoking History: Unknown if ever smoked Have you smoked in the past 12 months: No Number of Cigarettes Smoked Daily: 0 Cigars Per Day: 0 Hx Alcohol Use: No Drug/Substance Use Hx: No Substance Use Type: None Review of Systems - Review of Systems Able to Perform ROS?: Yes Comments:: 10/02/18 11:30 CONSTITUTIONAL: Absent: fever, chills, diaphoresis, generalized weakness, malaise, loss of appetite HEENT: Absent: rhinorrhea, nasal congestion, throat pain, throat swelling, difficulty swallowing, mouth swelling, ear pain, eye pain, visual Changes CARDIOVASCULAR: Absent: chest pain, loss of consciousness, palpitations, irregular heart rate, peripheral edema RESPIRATORY: Absent: cough, shortness of breath, dyspnea with exertion, orthopnea, wheezing, stridor, hemoptysis GASTROINTESTINAL: Absent: abdominal pain, abdominal distension, nausea, vomiting, diarrhea, constipation, melena, hematochezia GENITOURINARY: Absent: dysuria, frequency, urgency, hesitancy, hematuria, flank pain, genital pain MUSCULOSKELETAL: Absent: myalgia, arthralgia, joint swelling SKIN: Absent: rash, itching, pallor HEMATOLOGIC/IMMUNOLOGIC: Absent: easy bleeding, easy bruising, lymphadenopathy, frequent infections ENDOCRINE: Absent: unexplained weight gain, unexplained weight loss, heat intolerance, cold intolerance NEUROLOGIC: Absent: headache, focal weakness or paresthesias, dizziness, unsteady gait, seizure, mental status changes, bladder or bowel incontinence PSYCHIATRIC: Absent: anxiety, depression, suicidal or homicidal ideation, hallucinations. Is the patient limited Pashto proficient: No *Physical Exam - Vital Signs Last Vital Signs Temp Pulse Resp BP Pulse Ox 98.1 F 78 18 122/80 97 10/02/18 10:19 10/02/18 10:19 10/02/18 10:19 10/02/18 10:19 10/02/18 10:19 - Physical Exam Comments: 10/02/18 11:30 GENERAL: Well developed, well nourished. Awake and alert. No acute distress. CARDIOVASCULAR: Regular rate and rhythm. No murmurs, rubs, or gallops. Distal pulses are 2+ and symmetric. PULMONARY: No evidence of respiratory distress. Lungs clear to auscultation bilaterally. No wheezing, rales or rhonchi. ABDOMINAL: +neg Prehn's sign +One painful herpetic lesion 2 o'clock, 1cm from meatus without drainage/ lypmphanigitis Soft. Non-tender. Non-distended. No rebound or guarding. No organomegaly. Normoactive bowel sounds. SKIN: Warm and dry. Normal capillary refill. No rashes. No jaundice. Moderate Sedation - Procedure Monitoring Vital Signs: Procedure Monitoring Vital Signs Temperature 98.1 F 10/02/18 10:19 Pulse Rate 78 12/28/18 10:19 Respiratory Rate 18 10/02/18 10:19 Blood Pressure 122/80 10/02/18 10:19 O2 Sat by Pulse Oximetry (%) 97 10/02/18 10:19 ED Treatment Course - RADIOLOGY Radiograph Interpretation: 10/02/18 11:39 US scrotum/contents: neg Small bilateral hydrocele/ otherwise normal, no torsion *DC/Admit/Observation/Transfer Diagnosis at time of Disposition: Hydrocele in adult Herpes genitalia Qualifiers: Herpes simplex infection site: unspecified site of urogenital system Qualified Code(s): A60.00 - Herpesviral infection of urogenital system, unspecified - Discharge Dispostion Disposition: HOME Condition at time of disposition: Stable Decision to Admit order: No - Prescriptions Prescriptions: Acyclovir [Zovirax -] 400 mg PO TID #60 capsule - Referrals - Patient Instructions Printed Discharge Instructions: DI for Varicocele, DI for Genital Herpes Additional Instructions: Practice abstinence Follow-up with your urologist Return back to the ER for severe/persistent or worsening symptoms Take antibiotics as prescribed until completion. - Post Discharge Activity
[2018-10-02 10:52] LABS: URINE APPEARANCE CLEAR; URINE BILIRUBIN NEGATIVE (<2.0 mg/dL); URINE COLOR LTYELLOW; URINE GLUCOSE (UA) NEGATIVE (NEGATIVE); URINE KETONE NEGATIVE (NEGATIVE); URINE LEUK ESTERASE NEGATIVE (NEGATIVE); URINE NITRITE NEGATIVE (NEGATIVE); URINE PROTEIN NEGATIVE (NEGATIVE); URINE UROBILINOGEN NEGATIVE mg/dL (0.2-1.0)
== END 2018-10-02 12:51 | disposition home or self-care (01) ==
LOC: JERFT 10:14
DX: A60.00 Herpesviral infection of urogenital system, unspecified (principal); N43.2 Other hydrocele
CPT/HCPCS: 76870-TC; 81003; 99281-25

== ENCOUNTER 2020-10-18 13:54 | Emergency (ER) | payer OTHER ==
[2020-10-18 14:36] VITALS: BP 125/77; PULSE 82; TEMP 99.9; BMI 30.4
== END 2020-10-18 15:30 | disposition home or self-care (01) ==
LOC: JER 13:54
DX: J20.9 Acute bronchitis, unspecified (principal)
CPT/HCPCS: 71046-TC-FY; 99283-25

== ENCOUNTER 2021-01-22 17:28 | Emergency (ER) | payer OTHER ==
[2021-01-22 17:57] VITALS: BP 123/87; BMI 32.1
[2021-01-22] MEDS ORDERED: FAMOTIDINE 20 MG TABLET PO ONE (18:30)
[2021-01-22] MEDS ORDERED: MAG HYDROX/AL HYDROX/SIMETH -MYLANTA- ORAL SUSPENSION PO ONE (18:30)
[2021-01-22] MEDS ORDERED: ACETAMINOPHEN 325 MG TABLET (FP) PO ONE (18:30)
[2021-01-22] MEDS ORDERED: ACETAMINOPHEN 325 MG TABLET (FP) ONE (18:36)
[2021-01-22] MEDS ORDERED: FAMOTIDINE 20 MG TABLET ONE (18:36)
[2021-01-22] MEDS ORDERED: MAG HYDROX/AL HYDROX/SIMETH 30 ML UNIT-DOSE CUP ONE (18:36)
[2021-01-22 19:00] LABS: BASO % 0.3 % (0-2.0); HEMATOCRIT 44.3 % (35.4-49); HEMOGLOBIN 14.9 GM/dL (11.7-16.9); MCH 26.9 pg (25.7-33.7); MCHC 33.7 g/dl (32.0-35.9); MEAN CELL VOLUME 79.8 fl (80-96); MEAN PLT VOLUME 8.2 fl (7.5-11.1); MONO % 6.9 % (3.8-10.2); NEUT % 55.8 % (42.8-82.8); PLATELET COUNT 255 K/MM3 (134-434); RBC 5.55 M/mm3 (4.00-5.60); RDW 13.2 % (11.9-15.9); WHITE BLOOD COUNT 8.8 K/mm3 (4.0-10.0)
[2021-01-22 19:29] LABS: CALCIUM 9.6 mg/dL (8.5-10.1)
[2021-01-22 19:30] LABS: BLOOD UREA NITROGEN 11.1 mg/dL (7-18)
[2021-01-22 19:33] VITALS: PULSE 84
[2021-01-22 19:34] LABS: BILIRUBIN,TOTAL 0.6 mg/dL (0.2-1); TOT PROT 7.3 g/dl (6.4-8.2)
== END 2021-01-22 20:03 | disposition home or self-care (01) ==
LOC: JER 17:28
DX: R10.13 Epigastric pain (principal)
CPT/HCPCS: 36415; 80053; 83690; 85025; 99283-25

== ENCOUNTER 2021-01-26 02:55 | Emergency (ER) | payer OTHER ==
[2021-01-26 03:08] VITALS: BP 121/84; PULSE 68; TEMP 98.3; BMI 30.4
[2021-01-26] MEDS ORDERED: FAMOTIDINE 10 MG TABLET PO ONE (03:41)
[2021-01-26] MEDS ORDERED: MAG HYDROX/AL HYDROX/SIMETH 30 ML UNIT-DOSE CUP PO ONE (03:41)
[2021-01-26] MEDS ORDERED: ACETAMINOPHEN 325 MG TABLET (FP) PO ONE (03:41)
[2021-01-26] MEDS ORDERED: FAMOTIDINE 10 MG TABLET ONE (03:46)
[2021-01-26] MEDS ORDERED: ACETAMINOPHEN 325 MG TABLET (FP) ONE (03:46)
[2021-01-26] MEDS ORDERED: MAG HYDROX/AL HYDROX/SIMETH 30 ML UNIT-DOSE CUP ONE (03:46)
[2021-01-26] MEDS ORDERED: ONDANSETRON *ODT* 4 MG TABLET ONE (03:50)
[2021-01-26] MEDS ORDERED: ONDANSETRON *ODT* 4 MG TABLET SL ONE (04:33)
== END 2021-01-26 05:26 | disposition home or self-care (01) ==
LOC: JER 02:55
DX: K29.70 Gastritis, unspecified, without bleeding (principal)
CPT/HCPCS: 99283-25; Q0162

== ENCOUNTER 2022-09-06 01:23 | Emergency (ER) | payer OTHER ==
[2022-09-06 01:37] VITALS: BP 113/70; PULSE 72; RESP 20; BMI 23.0
[2022-09-06 01:38] VITALS: TEMP 98.6
== END 2022-09-06 05:50 | disposition home or self-care (01) ==
LOC: JER 01:23
DX: U07.1 COVID-19 (principal)
CPT/HCPCS: 0241U-QW; 71046-TC-FY; 99284-25